=== PATIENT | female | born 2005 | race Caucasian/White ===

== ENCOUNTER 2023-06-05 13:20 | Emergency (ER) | payer MEDICAID ==
[~2023-06-05] VITALS: Ht 167.6 cm; Wt 60.0 kg
[2023-06-05 13:50] VITALS: O2SAT 100
[2023-06-05 14:37] LABS: CLARITY URINE CLEAR (CLEAR); COLOR URINE YELLOW (YELLOW); GLUCOSE URINE NEGATIVE (NEGATIVE); KETONES URINE TRACE (NEGATIVE); LEUKOCYTE ESTERASE URINE TRACE (NEGATIVE); NITRITE URINE NEGATIVE (NEGATIVE); OCCULT BLOOD URINE 2+ (NEGATIVE); PROTEIN URINE TRACE (NEGATIVE); SPECIFIC GRAVITY URINE 1.035 (1.005-1.030)
[2023-06-05 15:07] LABS: SQUAMOUS EPITHELIAL CELL URINE 1+ /lpf (RARE/1+); WBC URINE 0-2 /hpf (0-2); YEAST URINE NONE SEEN
[2023-06-05 15:09] LABS: BACTERIA URINE 1+
[2023-06-05 15:13] LABS: BASOPHILS % 0.4 % (0.0-2.0); EOSINOPHILS % 0.6 % (0.0-5.0); HEMATOCRIT. 37.6 % (36.0-48.0); HEMOGLOBIN. 12.8 g/dL (12.0-16.0); LYMPHOCYTES % 20.2 % (20.0-50.0); MEAN CORPUSCULAR HEMOGLOBIN 31.3 pg (28.0-32.0); MEAN CORPUSCULAR HGB CONC 33.9 g/dL (31.0-37.0); MEAN CORPUSCULAR VOLUME 92.2 fL (81.0-99.0); MEAN PLATELET VOLUME 8.7 fl (7.4-10.4); MONOCYTES % 5.8 % (2.0-8.0); PLATELET 184 x1000/uL (130-400); RED BLOOD CELL COUNT 4.08 mill/uL (4.2-5.4); RED CELL DISTRIBUTION WIDTH 12.7 % (11.6-14.6); WHITE BLOOD COUNT 9.2 x1000/uL (4.5-11.0)
[2023-06-05 15:40] LABS: ALANINE AMINOTRANSFERASE 9 IU/L (10-49); ALBUMIN 4.2 g/dL (3.2-4.8); ASPARTATE AMINOTRANSFERASE 15 IU/L (<34); BILIRUBIN TOTAL 0.8 mg/dL (0.1-1.0); CALCIUM 9.1 mg/dL (8.7-10.4); CARBON DIOXIDE 22 mEq/L (21-32); CHLORIDE 106 mEq/L (98-107); CREATININE 0.5 mg/dL (0.6-1.0); GLUCOSE 102 mg/dL (70-105); POTASSIUM 3.9 mEq/L (3.5-5.1); PROTEIN TOTAL 7.3 g/dL (6.0-8.3); SODIUM 136 mEq/L (136-145); UREA NITROGEN BLOOD 12 mg/dL (9-23)
[2023-06-05 15:42] LABS: B-HCG QUANTITATIVE > 200000 mIU/mL (<3)
[2023-06-06 00:14] VITALS: BP 107/64; PULSE 65; RESP 16; TEMP 98.5
== END 2023-06-05 22:15 | disposition home or self-care (01) ==
LOC: ER 13:31
DX: O26.891 Other specified pregnancy related conditions, first trimester (principal); F19.90 Other psychoactive substance use, unspecified, uncomplicated; Z3A.08 8 weeks gestation of pregnancy
CPT/HCPCS: 36415; 76801; 80053; 81003; 81025; 84702; 85025; 86850; 86900; 99284

== ENCOUNTER 2023-06-07 15:58 | Emergency (ER) | payer MEDICAID ==
[~2023-06-07] VITALS: Ht 152.4 cm; Wt 59.0 kg
[2023-06-07 16:12] VITALS: O2SAT 100
[2023-06-07 18:23] VITALS: BP 115/76; PULSE 74; RESP 16; TEMP 98.5
== END 2023-06-07 19:00 | disposition home or self-care (01) ==
LOC: ER 15:58
DX: O9A.211 Injury, poisoning and certain other consequences of external causes complicating pregnancy, first trimester (principal); F19.90 Other psychoactive substance use, unspecified, uncomplicated; Z3A.10 10 weeks gestation of pregnancy
CPT/HCPCS: 76801; 99284